=== PATIENT | female | born 1995 | race Caucasian/White ===

== ENCOUNTER 2022-11-19 07:05 | Inpatient (IN) | payer BC ==
[2022-11-19] MEDS ORDERED: Promethazine HCl 25 MG/ML VIAL IM PRN (07:33)
[2022-11-19] MEDS ORDERED: Ondansetron PF 4 MG/2 ML Vial IVP PRN ×2 (07:33→15:42)
[2022-11-19] MEDS ORDERED: Acetaminophen 500 MG TAB PO PRN (07:33)
[2022-11-19] MEDS ORDERED: Butorphanol Tartrate 1 MG/ML VIAL SLOW IVP PRN (07:33)
[2022-11-19] MEDS ORDERED: hydrALAZINE 20 MG/ML VIAL SLOW IVP PRN ×2 (07:33→15:42)
[2022-11-19 07:47] VITALS: BMI 25.8
[2022-11-19] MEDS: Lactated Ringer's 1,000 ML IV SCH ×2 (07:57→21:32)
[2022-11-19 08:08] LABS: Hemoglobin 12.6 g/dL (12.0-15.5); Mean Corpuscular HGB CONC 35.2 g/dL (32.0-36.0); Mean Corpuscular Volume 90.9 fl (81.6-98.3); Mean Platelet Volume 10.9 fl (7.4-10.4); Platelet Count 170 10x3/uL (150-450); Red Blood Cell (RBC) Count 3.94 10x6/uL (3.90-5.03); White Blood Cell (WBC) Count 13.6 10x3/uL (3.5-10.5)
[2022-11-19] MEDS ORDERED: Fentanyl 2 mcg/Bup 0.1% Cadd 100 ML ONE (08:19)
[2022-11-19 08:47] LABS: HBSAg Index 0.16 S/CO (0-0.99); Hep B Surf Ag Non-Reactive S/CO (NonReactive)
[2022-11-19 08:48] LABS: Syphilis Antibody Nonreactive (Nonreactive); Syphilis Antibody Index 0.03 S/CO (<1.00 Non-Reactive)
[2022-11-19] MEDS ORDERED: NS w/ Oxytocin 30 units 500 ML ONE (09:30)
[2022-11-19 11:35] LABS: SARS-CoV-2 NAA Rapid Test Not Detected (NotDetected)
[2022-11-19] MEDS ORDERED: Bupivacaine/Epinephrine 0.25% 30 ML VIAL ONE (13:00)
[2022-11-19] MEDS ORDERED: diphenhydrAMINE 25 MG CAP PO PRN (15:42)
[2022-11-19] MEDS ORDERED: Milk Of Magnesia 30 ML UDCUP PO PRN (15:42)
[2022-11-19] MEDS ORDERED: Lanolin Ointment 7 GM TUBE TOP PRN (15:42)
[2022-11-19] MEDS ORDERED: Misoprostol 200 MCG TAB VAG PRN (15:42)
[2022-11-19] MEDS ORDERED: Bisacodyl 10 MG SUPP PR PRN (15:42)
[2022-11-19] MEDS ORDERED: Benzocaine-Menthol 82.5 ML CAN TOP PRN (15:42)
[2022-11-19] MEDS ORDERED: Zolpidem Tartrate 5 MG TAB PO PRN (15:42)
[2022-11-19] MEDS ORDERED: HYDROcodone/Acetaminophen 5/325 mg Tablet PO PRN ×2 (15:42)
[2022-11-19] MEDS ORDERED: Boostrix 0.5 ML (Tdap) VIAL (>/=7 yrs of age) IM ONE (15:42)
[2022-11-19] MEDS ORDERED: Preparation H Ointment 28 GM TUBE PR PRN (15:42)
[2022-11-19] MEDS ORDERED: NS w/ Oxytocin 30 units 500 ML IV SCH (15:45)
[2022-11-19] MEDS ORDERED: Witch Hazel-Glycerin 1 EACH JAR TOP PRN (15:45)
[2022-11-19] MEDS: Ibuprofen 800 MG TAB PO SCH (21:31)
[2022-11-19] MEDS: Ferrous Sulfate 325 MG TAB PO SCH (21:32)
[2022-11-20] MEDS: Docusate 100 MG CAP PO SCH ×2 (00:15→09:17)
[2022-11-20] MEDS: Ibuprofen 800 MG TAB PO SCH ×2 (05:58→15:37)
[2022-11-20] MEDS ORDERED: Prenatal Vitamin 1 TAB PO SCH (09:00)
[2022-11-20] MEDS: Ferrous Sulfate 325 MG TAB PO SCH ×2 (09:16→18:02)
[2022-11-20 11:50] VITALS: BP 124/80; TEMP 97.7
== END 2022-11-20 18:35 | disposition home or self-care (01) | DRG 807 ==
LOC: CSHLD/OP 07:05 → CSHLD 07:33 → CSHPP 22:40
PROVIDERS: ADMIT Obstetrics & Gynecology; ATTEND Obstetrics & Gynecology
PROC: 10D07Z6 Extraction of Products of Conception, Vacuum, Via Natural or Artificial Opening (ICD-10-PCS; principal; 2022-11-19)
PROC: 0KQM0ZZ Repair Perineum Muscle, Open Approach (ICD-10-PCS; 2022-11-19)
PROC: 10907ZC Drainage of Amniotic Fluid, Therapeutic from Products of Conception, Via Natural or Artificial Opening (ICD-10-PCS; 2022-11-19)
DX: O32.8XX0 Maternal care for other malpresentation of fetus, not applicable or unspecified (principal); Z37.0 Single live birth; Z20.822 Contact with and (suspected) exposure to COVID-19; Z3A.39 39 weeks gestation of pregnancy; O70.1 Second degree perineal laceration during delivery
CPT/HCPCS: 36415; 51702; 85027; 86780; 86850; 86900; 86901; 87340; 99285; J7120; U0002

== ENCOUNTER 2024-10-21 21:43 | Inpatient (IN) | payer BC ==
[2024-10-21] MEDS: fentaNYL 50 mcg/mL 1 mL Vial ONE (22:20)
[2024-10-21] MEDS ORDERED: Witch Hazel 100 PAD JAR TOP PRN (22:39)
[2024-10-21] MEDS: Lidocaine 1% (PF) 30 ML VIAL ONE (22:40)
[2024-10-21] MEDS: Fluconazole 100 MG TAB PO SCH (22:48)
[2024-10-21] MEDS ORDERED: diphenhydrAMINE 25 MG CAP PO PRN (22:53)
[2024-10-21] MEDS ORDERED: Milk Of Magnesia 30 ML UDCUP PO PRN (22:53)
[2024-10-21] MEDS ORDERED: Ondansetron PF 4 MG/2 ML Vial IVP PRN (22:53)
[2024-10-21] MEDS ORDERED: Oxytocin 30 units/NS 500 ML 500 ML IV SCH (22:53)
[2024-10-21] MEDS ORDERED: Methylergonovine 0.2 MG/ML VIAL IM PRN (22:53)
[2024-10-21] MEDS ORDERED: Zolpidem Tartrate 5 MG TAB PO PRN (22:53)
[2024-10-21] MEDS ORDERED: Misoprostol 200 MCG TAB VAG PRN (22:53)
[2024-10-21] MEDS ORDERED: HYDROcodone/Acetaminophen 5/325 mg Tablet PO PRN (22:53)
[2024-10-21] MEDS ORDERED: hydrALAZINE 20 MG/ML VIAL SLOW IVP PRN (22:53)
[2024-10-21] MEDS ORDERED: Preparation H Ointment 28 GM TUBE PR PRN (22:53)
[2024-10-21] MEDS ORDERED: Bisacodyl 10 MG SUPP PR PRN (22:53)
[2024-10-21] MEDS ORDERED: Lanolin Ointment 7 GM TUBE TOP PRN (22:53)
[2024-10-21] MEDS ORDERED: fentaNYL 50 mcg/mL 1 mL Vial SLOW IVP PRN (23:05)
[2024-10-21] MEDS: HYDROcodone/Acetaminophen 5/325 mg Tablet PO PRN (23:06)
[2024-10-21 23:09] VITALS: BMI 26.3
[2024-10-22 01:21] LABS: Hematocrit 32.8 % (34.9-44.5); Hemoglobin 10.8 g/dL (12.0-15.5); Mean Corpuscular HGB CONC 32.9 g/dL (32.0-36.0); Mean Corpuscular Hemoglobin 30.2 pg (27.0-33.0); Mean Corpuscular Volume 91.6 fL (81.6-98.3); Mean Platelet Volume 11.1 fL (7.4-10.4); Platelet Count 168 10x3/uL (150-450); RBC Distribution Width 12.7 % (11.5-14.5); Red Blood Cell (RBC) Count 3.58 10x6/uL (3.90-5.03); White Blood Cell (WBC) Count 15.7 10x3/uL (3.5-10.5)
[2024-10-22 01:40] LABS: HBsAg Index 0.19 S/CO (0-0.99); Hep B Surf Ag - L&D Non-Reactive S/CO (NonReactive)
[2024-10-22 01:42] LABS: Syphilis Antibody Nonreactive (Nonreactive); Syphilis Antibody Index 0.05 S/CO (<1.00 Non-Reactive)
[2024-10-22] MEDS: Benzocaine-Menthol 82.5 ML CAN TOP PRN (02:43)
[2024-10-22] MEDS: Ibuprofen 800 MG TAB PO SCH (02:44)
[2024-10-22] MEDS: Oxytocin 30 units/NS 500 ML 500 ML ONE (03:12)
[2024-10-22] MEDS: Boostrix 0.5 ML (Tdap) VIAL (>/=7 yrs of age) IM ONE (03:12)
[2024-10-22] MEDS ORDERED: Ibuprofen 800 MG TAB PO SCH (06:00)
[2024-10-22 06:47] LABS: Hematocrit 29.7 % (34.9-44.5); Mean Corpuscular HGB CONC 33.7 g/dL (32.0-36.0); Mean Corpuscular Hemoglobin 30.5 pg (27.0-33.0); Mean Corpuscular Volume 90.5 fL (81.6-98.3); Mean Platelet Volume 10.9 fL (7.4-10.4); Platelet Count 152 10x3/uL (150-450); RBC Distribution Width 12.6 % (11.5-14.5); Red Blood Cell (RBC) Count 3.28 10x6/uL (3.90-5.03); White Blood Cell (WBC) Count 13.8 10x3/uL (3.5-10.5)
[2024-10-22] MEDS: Docusate 100 MG CAP PO SCH (08:11)
[2024-10-22] MEDS: Prenatal Vitamin 1 TAB PO SCH (08:15)
[2024-10-22] MEDS: Ferrous Sulfate 325 MG TAB PO SCH (08:16)
[2024-10-22] MEDS ORDERED: Acetaminophen 325 MG TAB PO PRN (14:38)
[2024-10-23 09:47] VITALS: BP 137/85; TEMP 98.2
== END 2024-10-23 10:50 | disposition home or self-care (01) | DRG 807 ==
LOC: CSHLD/OP 21:43 → CSHLD 22:12 → CSHPP 10-22 01:30
PROVIDERS: ADMIT Obstetrics & Gynecology; ATTEND Obstetrics & Gynecology
PROC: 10E0XZZ Delivery of Products of Conception, External Approach (ICD-10-PCS; principal; 2024-10-21)
PROC: 0HQ9XZZ Repair Perineum Skin, External Approach (ICD-10-PCS; 2024-10-21)
DX: O62.3 Precipitate labor (principal); Z37.0 Single live birth; Z3A.39 39 weeks gestation of pregnancy
CPT/HCPCS: 36415; 85027; 86780; 86850; 86900; 86901; 87340; 99285; J2590; J3010